=== PATIENT | female | born 1970 | race Caucasian/White ===

== ENCOUNTER 2022-05-14 06:19 | Emergency (ER) | payer OTHER ==
[2022-05-14 07:31] LABS: Bilirubin Neg (Negative); Blood, Urine Negative (Negative); Clarity Clear (Clear); Glucose, Urine (Dipstick) >=1000 mg/dL (Negative); Ketone, Urine 5 mg/dL (Negative); Leukocyte Negative (Negative); Nitrite Negative (Negative); Protein, Urine (Dipstick) Negative (Neg-Trace); Specific Gravity, Urine 1.015 (1.002-1.036); Urobilinogen Normal mg/dL (Less than 2)
[2022-05-14 07:31] LABS: #Monocytes 0.8 10x3/uL (0.0-1.1); #Neutrophils 13.2 10x3/uL (1.5-8.4); %Basophils 0.1 % (0.0-2.0); %Lymphocytes 9.6 % (18.0-47.0); %Monocytes 5.2 % (0.0-10.0); %Neutrophils 84.7 % (40.0-75.0); Hemoglobin 13.1 g/dL (12.0-15.5); Mean Corpuscular HGB CONC 33.4 g/dL (32.0-36.0); Mean Corpuscular Hemoglobin 29.6 pg (27.0-33.0); Mean Corpuscular Volume 88.5 fl (81.6-98.3); Mean Platelet Volume 10.6 fl (7.4-10.4); Platelet Count 439 10x3/uL (150-450); RBC Distribution Width 13.2 % (11.5-14.5); Red Blood Cell (RBC) Count 4.43 10x6/uL (3.90-5.03); White Blood Cell (WBC) Count 15.6 10x3/uL (3.5-10.5)
[2022-05-14 07:41] LABS: ALT (SGPT) 19 U/L (8-55); AST (SGOT) 13 U/L (5-34); Albumin 4.3 g/dL (3.5-5.0); Alkaline Phosphatase 152 U/L (40-110); Anion Gap 24 mmol/L (10-20); BUN (Urea Nitrogen) 23 mg/dL (9.8-20.1); Bilirubin, Total 0.2 mg/dL (0.2-1.2); Calc. Creatinine Clearance 0 mL/min (70-130); Calcium 8.9 mg/dL (7.8-10.44); Carbon Dioxide 19 mmol/L (22-29); Chloride 103 mmol/L (98-107); Estimated GFR 46; Globulin 3.5 g/dL (2.4-3.5); Glucose 427 mg/dL (70-105); Potassium 4.5 mmol/L (3.5-5.1); Protein, Total 7.8 g/dL (6.0-8.3); Sodium 141 mmol/L (136-145)
[2022-05-14] MEDS ORDERED: Morphine 4 MG/ML VIAL ONE (08:30)
== END 2022-05-14 09:05 | disposition home or self-care (01) ==
LOC: CSHERS 06:19
DX: M54.50 Low back pain, unspecified (principal); E11.65 Type 2 diabetes mellitus with hyperglycemia; I10 Essential (primary) hypertension; Z85.850 Personal history of malignant neoplasm of thyroid; Z79.899 Other long term (current) drug therapy; Z79.84 Long term (current) use of oral hypoglycemic drugs
CPT/HCPCS: 36415; 72148; 80053; 81003; 85025; 85652; 86140; 96361; 96374; J2270

== ENCOUNTER 2022-10-07 20:11 | Emergency (ER) | payer OTHER ==
[2022-10-07] MEDS ORDERED: Orphenadrine Citrate 60 MG/2 ML VIAL IM SCH (21:00)
[2022-10-07 21:47] LABS: Hemoglobin 13.2 g/dL (12.0-15.5); Mean Corpuscular HGB CONC 34.1 g/dL (32.0-36.0); Mean Platelet Volume 10.1 fl (7.4-10.4); Platelet Count 375 10x3/uL (150-450); RBC Distribution Width 13.1 % (11.5-14.5); White Blood Cell (WBC) Count 10.9 10x3/uL (3.5-10.5)
[2022-10-07 21:54] LABS: MDiff Complete? YES
[2022-10-07 22:01] LABS: ALT (SGPT) 14 U/L (8-55); AST (SGOT) 15 U/L (5-34); Albumin 4.4 g/dL (3.5-5.0); Alkaline Phosphatase 139 U/L (40-110); Anion Gap 16 mmol/L (10-20); BUN (Urea Nitrogen) 8 mg/dL (9.8-20.1); Bilirubin, Total 0.2 mg/dL (0.2-1.2); Calc. Creatinine Clearance 0 mL/min (70-130); Calcium 8.6 mg/dL (7.8-10.44); Carbon Dioxide 21 mmol/L (22-29); Chloride 105 mmol/L (98-107); Estimated GFR 55; Globulin 3.7 g/dL (2.4-3.5); Glucose 345 mg/dL (70-105); Potassium 3.7 mmol/L (3.5-5.1); Protein, Total 8.1 g/dL (6.0-8.3); Sodium 138 mmol/L (136-145)
[2022-10-07 22:33] LABS: Eosinophils 1 % (0-10); Lymphocytes 40 % (21-51); Monocytes 6 % (0-10); Neutrophil 53 % (42-75)
[2022-10-07 22:34] LABS: Diff Comment (RBC Morph SCRN) NORMAL; Platelet Morphology Comment Appears Decreased
[2022-10-07 23:04] LABS: Bilirubin Neg (Negative); Clarity Slightly Cloudy (Clear); Ketone, Urine Negative (Negative); Leukocyte Negative (Negative); Nitrite Negative (Negative); Protein, Urine (Dipstick) Negative (Neg-Trace); Urobilinogen Normal mg/dL (Less than 2)
[2022-10-07 23:10] LABS: WBC/HPF 0-3 HPF (0-3)
[2022-10-08 03:13] LABS: RBC/HPF None Seen HPF (0-3)
[2022-10-08 03:17] LABS: Glucose, Urine (Dipstick) >=1000 mg/dL (Negative); Specific Gravity, Urine 1.015 (1.005-1.030)
[2022-10-08 03:18] LABS: Blood, Urine 10 (Negative); Squamous Epithelial 0-3 HPF (0-3)
[2022-10-08 03:19] LABS: Bacteria/HPF 1+ HPF (None Seen); Mucous/LPF None Seen LPF (<2+)
== END 2022-10-07 23:42 | disposition home or self-care (01) ==
LOC: CSHERS 20:11
DX: M54.42 Lumbago with sciatica, left side (principal); I10 Essential (primary) hypertension; E78.5 Hyperlipidemia, unspecified; E11.9 Type 2 diabetes mellitus without complications; Z79.899 Other long term (current) drug therapy
CPT/HCPCS: 36415; 72131; 80053; 81003; 81015; 85025; 85652; 87086; 96372; J2360

== ENCOUNTER 2023-12-20 11:14 | Observation (INO) | payer BC, OTHER ==
[2023-12-20] MEDS ORDERED: diphenhydrAMINE 50 MG/ML VIAL ONE (11:52)
[2023-12-20] MEDS ORDERED: Ketorolac Tromethamine 30 MG (1 mL) VIAL ONE ×2 (11:53→13:19)
[2023-12-20] MEDS ORDERED: Ondansetron PF 4 MG/2 ML Vial ONE (11:53)
[2023-12-20 12:25] LABS: PTT 27.3 sec (22.0-33.0); Prothrombin Time 10.5 sec (9.5-12.1)
[2023-12-20 12:32] LABS: Troponin I Less than 0.010 ng/mL (< 0.028)
[2023-12-20 12:34] LABS: #Basophils 0.1 10x3/uL (0.0-0.2); #Eosinphils 0.1 10x3/uL (0.0-0.5); #Monocytes 0.6 10x3/uL (0.0-1.1); #Neutrophils 5.5 10x3/uL (1.5-8.4); %Basophils 0.9 % (0.0-2.0); %Lymphocytes 34.4 % (18.0-47.0); %Monocytes 6.1 % (0.0-10.0); %Neutrophils 57.3 % (40.0-75.0); Hematocrit 36.7 % (34.9-44.5); Hemoglobin 12.5 g/dL (12.0-15.5); Mean Corpuscular HGB CONC 34.1 g/dL (32.0-36.0); Mean Corpuscular Hemoglobin 29.9 pg (27.0-33.0); Mean Corpuscular Volume 87.8 fl (81.6-98.3); Mean Platelet Volume 11.4 fl (7.4-10.4); Platelet Count 247 10x3/uL (150-450); RBC Distribution Width 12.9 % (11.5-14.5); Red Blood Cell (RBC) Count 4.18 10x6/uL (3.90-5.03); White Blood Cell (WBC) Count 9.6 10x3/uL (3.5-10.5)
[2023-12-20 12:35] LABS: ALT (SGPT) 24 U/L (8-55); AST (SGOT) 17 U/L (5-34); Albumin 4.6 g/dL (3.5-5.0); Alkaline Phosphatase 81 U/L (40-110); Anion Gap 19 mmol/L (10-20); BUN (Urea Nitrogen) 16 mg/dL (9.8-20.1); Bilirubin, Total 0.3 mg/dL (0.2-1.2); Calc. Creatinine Clearance 0 mL/min (70-130); Calcium 8.3 mg/dL (7.8-10.44); Carbon Dioxide 20 mmol/L (22-29); Chloride 106 mmol/L (98-107); Estimated GFR 52; Globulin 3.1 g/dL (2.4-3.5); Glucose 86 mg/dL (70-105); Potassium 4.1 mmol/L (3.5-5.1); Protein, Total 7.7 g/dL (6.0-8.3); Sodium 141 mmol/L (136-145)
[2023-12-20 12:46] LABS: Platelet Adequacy Comment Appears Adequate; Platelet Clumps MODERATE; RBC Morph Comment Within Normal Limits
[2023-12-20] MEDS ORDERED: Metoprolol Tartrate 25 MG TAB ONE (13:20)
[2023-12-20] MEDS ORDERED: Dextrose 5% in Water 1,000 ML IV PRN (14:53)
[2023-12-20] MEDS ORDERED: Dextrose 50% Abboject 50 ML SYRINGE SLOW IVP PRN (14:53)
[2023-12-20] MEDS ORDERED: Glucagon 1 MG/ML KIT IM PRN (14:53)
[2023-12-20] MEDS ORDERED: Acetaminophen 650 MG Suppository PR PRN (15:08)
[2023-12-20] MEDS ORDERED: Acetaminophen 325 MG TAB PO PRN (15:08)
[2023-12-20] MEDS ORDERED: Ondansetron PF 4 MG/2 ML Vial IVP PRN (15:08)
[2023-12-20] MEDS ORDERED: Ondansetron ODT 4 MG TAB PO PRN (15:08)
[2023-12-20] MEDS ORDERED: hydrALAZINE 20 MG/ML VIAL SLOW IVP PRN (15:10)
[2023-12-20] MEDS: SUMAtriptan Succinate 25 MG TAB PO SCH (17:29)
[2023-12-20] MEDS: Hydrocodone-Acetamin 15 ML UDCUP PO SCH (20:34)
[2023-12-20] MEDS: Atorvastatin Calcium 40 MG TAB PO SCH (20:35)
[2023-12-21] MEDS: Hydrocodone-Acetamin 15 ML UDCUP PO SCH ×2 (01:04→11:23)
[2023-12-21] MEDS: HYDROcodone/Acetaminophen 7.5/325 mg Tablet PO SCH (01:10)
[2023-12-21 01:24] VITALS: BMI 33.4
[2023-12-21] MEDS: Losartan 50 MG TAB PO SCH (01:28)
[2023-12-21] MEDS: Gabapentin 300 MG CAP PO SCH ×2 (01:28→09:42)
[2023-12-21] MEDS: traZODone HCl 50 MG TAB PO SCH (01:28)
[2023-12-21 04:24] LABS: #Basophils 0.1 10x3/uL (0.0-0.2); #Eosinphils 0.4 10x3/uL (0.0-0.5); #Monocytes 0.6 10x3/uL (0.0-1.1); #Neutrophils 4.5 10x3/uL (1.5-8.4); %Eosinophils 4.8 % (0.0-6.0); %Lymphocytes 31.8 % (18.0-47.0); %Neutrophils 55.3 % (40.0-75.0); Hematocrit 33.5 % (34.9-44.5); Hemoglobin 11.2 g/dL (12.0-15.5); Mean Corpuscular HGB CONC 33.4 g/dL (32.0-36.0); Mean Corpuscular Hemoglobin 29.9 pg (27.0-33.0); Mean Corpuscular Volume 89.6 fl (81.6-98.3); Mean Platelet Volume 10.8 fl (7.4-10.4); Platelet Count 317 10x3/uL (150-450); RBC Distribution Width 12.9 % (11.5-14.5); Red Blood Cell (RBC) Count 3.74 10x6/uL (3.90-5.03); White Blood Cell (WBC) Count 8.1 10x3/uL (3.5-10.5)
[2023-12-21 04:41] LABS: Anion Gap 15 mmol/L (10-20); BUN (Urea Nitrogen) 16 mg/dL (9.8-20.1); Calc. Creatinine Clearance 56 mL/min (70-130); Calcium 8.1 mg/dL (7.8-10.44); Carbon Dioxide 24 mmol/L (22-29); Cardiac Risk 3.2 (Less than 4.5); Chloride 106 mmol/L (98-107); Cholesterol 116 mg/dl (< 200 Desired); Estimated GFR 43; Glucose 90 mg/dL (70-105); HDL Cholesterol 36 mg/dL (>60 Neg Risk); LDL Cholesterol, Calculated 54 mg/dL; Potassium 4.2 mmol/L (3.5-5.1); Sodium 141 mmol/L (136-145); Triglycerides 131 mg/dL (Less than 150)
[2023-12-21] MEDS: Levothyroxine Sodium 88 MCG TAB PO SCH (07:16)
[2023-12-21] MEDS: Sertraline 100 MG TAB PO SCH (09:43)
[2023-12-21] MEDS: Aspirin 81 mg Enteric Coated Tablet PO SCH (09:43)
[2023-12-21 18:27] VITALS: BP 121/67; TEMP 99.1
[2023-12-21] MEDS ORDERED: traZODone HCl 50 MG TAB PO SCH (21:00)
[2023-12-21] MEDS ORDERED: Losartan 50 MG TAB PO SCH (21:00)
== END 2023-12-21 19:30 | disposition home or self-care (01) ==
LOC: CSHERS 11:14 → SUATTDRO 11:14 → CSHTELE 13:59
PROVIDERS: ADMIT Internal Medicine; ATTEND Internal Medicine
PROC: B246ZZ4 Ultrasonography of Right and Left Heart, Transesophageal (ICD-10-PCS; principal; 2023-12-20)
DX: R55 Syncope and collapse (principal); I10 Essential (primary) hypertension; E78.5 Hyperlipidemia, unspecified; E11.649 Type 2 diabetes mellitus with hypoglycemia without coma; E89.0 Postprocedural hypothyroidism; R20.2 Paresthesia of skin; F41.9 Anxiety disorder, unspecified; G43.909 Migraine, unspecified, not intractable, without status migrainosus; F32.A Depression, unspecified; Z88.8 Allergy status to other drugs, medicaments and biological substances; Z79.82 Long term (current) use of aspirin; Z79.899 Other long term (current) drug therapy; Z79.890 Hormone replacement therapy; Z79.84 Long term (current) use of oral hypoglycemic drugs; Z90.49 Acquired absence of other specified parts of digestive tract
CPT/HCPCS: 36415; 36416; 70450; 70551; 72070; 80048; 80053; 80061; 84484; 85025; 85610; 85730; 93005; 93306; 95816; 95819; 96374; 96375; 96376; G0378; J1200; J1885; J2405

== ENCOUNTER 2024-08-23 15:09 | Emergency (ER) | payer BC ==
[2024-08-23] MEDS ORDERED: Ondansetron PF 4 MG/2 ML Vial ONE (15:38)
[2024-08-23] MEDS ORDERED: Morphine 4 MG/ML VIAL ONE (15:38)
[2024-08-23 16:15] LABS: #Basophils 0.11 10x3/uL (0.0-0.2); #Eosinophils 0.16 10x3/uL (0.0-0.5); #Monocytes 0.49 10x3/uL (0.0-1.1); #Neutrophils 4.07 10x3/uL (1.5-8.4); %Basophils 1.3 % (0.0-2.0); %Eosinophils 1.9 % (0.0-6.0); %Lymphocytes 42.8 % (18.0-47.0); %Monocytes 5.8 % (0.0-10.0); %Neutrophils 47.8 % (40.0-75.0); Hematocrit 37.8 % (34.9-44.5); Hemoglobin 12.7 g/dL (12.0-15.5); Mean Corpuscular HGB CONC 33.6 g/dL (32.0-36.0); Mean Corpuscular Hemoglobin 30.5 pg (27.0-33.0); Mean Corpuscular Volume 90.6 fL (81.6-98.3); Mean Platelet Volume 11.2 fL (7.4-10.4); Platelet Count 334 10x3/uL (150-450); RBC Distribution Width 13.2 % (11.5-14.5); Red Blood Cell (RBC) Count 4.17 10x6/uL (3.90-5.03); White Blood Cell (WBC) Count 8.5 10x3/uL (3.5-10.5)
[2024-08-23 16:21] LABS: ALT (SGPT) 13 U/L (8-55); AST (SGOT) 21 U/L (5-34); Albumin 4.2 g/dL (3.5-5.0); Alkaline Phosphatase 72 U/L (40-110); Anion Gap 17 mmol/L (10-20); BUN (Urea Nitrogen) 17 mg/dL (9.8-20.1); Bilirubin, Total 0.4 mg/dL (0.2-1.2); Calc. Creatinine Clearance 0 mL/min (70-130); Carbon Dioxide 21 mmol/L (22-29); Chloride 106 mmol/L (98-107); Estimated GFR 39; Globulin 3.9 g/dL (2.4-3.5); Glucose 121 mg/dL (70-105); Lipase 46 U/L (8-78); Potassium 4.2 mmol/L (3.5-5.1); Protein, Total 8.1 g/dL (6.0-8.3); Sodium 140 mmol/L (136-145)
[2024-08-23 16:27] LABS: Troponin I Less than 0.010 ng/mL (< 0.028)
[2024-08-23 16:28] LABS: Bilirubin Neg (Negative); Blood, Urine Negative (Negative); Clarity Clear (Clear); Glucose, Urine (Dipstick) Normal (Negative); Ketone, Urine Negative (Negative); Leukocyte Negative (Negative); Nitrite Negative (Negative); Protein, Urine (Dipstick) 15 mg/dl (Neg-Trace); Specific Gravity, Urine 1.025 (1.005-1.030); Urobilinogen Normal mg/dL (Less than 2)
[2024-08-23 16:30] LABS: Large Platelets SLIGHT (None Seen); Platelet Adequacy Comment Appears Adequate; Platelet Clumps MODERATE; RBC Morph Comment Within Normal Limits
[2024-08-23 16:56] LABS: Bacteria/HPF None Seen HPF (None Seen); CAUTI Indications for Culture Pelvic or flank pain; RBC/HPF 0-3 HPF (0-3); Squamous Epithelial 0-3 HPF (0-3); Urine Culture Reflex No No; WBC/HPF 0-3 HPF (0-3)
[2024-08-23 17:30] LABS: #Basophils 0.09 10x3/uL (0.0-0.2); #Eosinophils 0.16 10x3/uL (0.0-0.5); #Neutrophils 4.98 10x3/uL (1.5-8.4); %Basophils 0.9 % (0.0-2.0); %Eosinophils 1.6 % (0.0-6.0); %Lymphocytes 40.8 % (18.0-47.0); %Neutrophils 49.5 % (40.0-75.0); Hematocrit 34.9 % (34.9-44.5); Hemoglobin 11.3 g/dL (12.0-15.5); Mean Corpuscular HGB CONC 32.4 g/dL (32.0-36.0); Mean Corpuscular Hemoglobin 29.7 pg (27.0-33.0); Mean Corpuscular Volume 91.8 fL (81.6-98.3); Mean Platelet Volume 10.5 fL (7.4-10.4); Platelet Count 331 10x3/uL (150-450); RBC Distribution Width 13.1 % (11.5-14.5); White Blood Cell (WBC) Count 10.1 10x3/uL (3.5-10.5)
[2024-08-23] MEDS ORDERED: Pantoprazole DR 40 MG TAB ONE (17:57)
[2024-08-23] MEDS ORDERED: Lidocaine 2% Viscous 10 mL, Alum & Magn 30 mL SSW SCH (18:15)
== END 2024-08-23 18:43 | disposition home or self-care (01) ==
LOC: CSHERS 15:09
DX: R10.13 Epigastric pain (principal); R11.2 Nausea with vomiting, unspecified; I10 Essential (primary) hypertension; E78.5 Hyperlipidemia, unspecified; E11.9 Type 2 diabetes mellitus without complications; Z79.84 Long term (current) use of oral hypoglycemic drugs; Z79.82 Long term (current) use of aspirin
CPT/HCPCS: 36415; 71045; 74177; 80053; 81001; 83690; 84484; 85025; 93005; 96374; 96375; J2272; J2405